=== PATIENT | male | born 1980 | race Caucasian/White ===

== ENCOUNTER 2021-01-09 02:12 | Emergency (ER) | payer OTHER, MEDICAID, SELFPAY ==
[2021-01-09 02:37] VITALS: BMI 27.8
[2021-01-09 02:43] VITALS: BP 135/82; PULSE 79; RESP 16; TEMP 37.1; O2SAT 97
--- NOTE | 2021-01-09 02:49 | ED_ITS ---
HPI - Dizziness General Chief Complaint: Abdominal Pain Stated [facility] Time Seen by Provider: 01/09/21 02:43 Source: patient and family Mode of arrival: Wheelchair Limitations: no limitations History of Present Illness HPI Narrative: The patient was in a significant accident 5 days ago. 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 He was topping a tree at his home. He has appropriate safety gear. He was restrained with safety gear on. The top came out oddly. The top briefly pinned him to the trunk of the tree. It took a while for him to come down, he was restrained he did not fall. He was seen at [facility] and [place]. It is noted has transverse process fractures at L3 and L4. No intervention was required. Two days ago hemoperitoneum was discovered. Laparoscopy was transition to open surgery when ischemic bowel injury was discovered. He underwent resection of the distal ileum dental about 5 cm from the ileocecal valve. He was discharged home yesterday. He is out of pain meds. He is not eating much. He is taking fluids. He has abdominal distention with increased abdominal pain. He has not had a bowel movement for 5 days. He was prescribed MiraLax and is taking 1/2 of a dose. He has no urinary complaints. He has no ENT complaints. He has no chest pain or dyspnea. He has no cough. He has no fever. Related Data Previous Rx's Medication Instructions Recorded hydrocodone-acetaminophen 1 tab PO Q4-6H PRN #15 tab 01/09/21 Allergies Allergy/AdvReac Type Severity Reaction Status Date / Time No Known Drug Allergies Allergy Verified 01/09/21 05:21 Review of Systems Constitutional Constitutional: Denies chills, Denies fever(s) and Denies frequent falls Eyes Eyes: Denies change in vision ENT Ears, Nose, Mouth, and Throat: Denies dizziness and Denies sore throat Cardiovascular Cardiovascular: Denies chest pain, Denies irregular heart rhythm, Denies lightheadedness and Denies dyspnea Respiratory Respiratory: Denies chest congestion and Denies dyspnea Gastrointestinal Gastrointestinal: Reports as per HPI Genitourinary Genitourinary: Denies dysuria and Denies urinary urgency Genitourinary: Denies dysuria and Denies urinary urgency Musculoskeletal Musculoskeletal: Reports back pain and Denies numbness Integumentary/Breasts Skin/Breast: Denies pruritus, Denies erythema and Denies rash Neurologic Neurologic: Denies behavioral changes, Denies confusion, Denies dizziness, Corey es frequent falls and Denies numbness Psychiatric Psychiatric: Denies behavioral changes and Denies confusion Patient History Medical History (Updated 01/09/21 @ 06:49 by Ponce Rocha MD) Lumbar vertebral fracture Surgical History (Updated 01/09/21 @ 06:49 by Ponce Rocha MD) Status post exploratory laparotomy Social History Smoking Status: Current some day smoker Smoking Status: Current some day smoker tobacco type: cigarettes alcohol intake frequency: 0-2 drinks per day Substance Use Type: marijuana Exam Initial Vital Signs Initial Vital Signs: Vital Signs Temperature 98.8 F 01/09/21 02:43 Pulse Rate 79 01/09/21 02:43 Respiratory Rate 16 01/09/21 02:43 Blood Pressure 135/82 01/09/21 02:43 Pulse Oximetry 97 01/09/21 02:43 Const General: well groomed and in distress Nutritional Appearance: average body habitus Limitations: mental status not altered and behavioral limitations HENMT Head: normocephalic and atraumatic Eyes General: appearance normal, both eyes and all related structures Eyelids: eyelids normal Conjunctivae: conjunctivae normal Sclera: sclerae normal Pupils: PERRL EOM: EOM intact bilaterally Chest Chest: normal palpation of entire chest wall Resp Auscultation: clear to auscultation bilaterally Cardio Rate: regular rate Rhythm: regular rhythm Heart Sounds: S1 normal, S2 normal, no click, no gallops, no murmurs and no rubs Pulses: normal peripheral pulses GI Inspection: non-distended Palpation: soft, No guarding, No pulsatile mass and tender Auscultation: normal bowel sounds Other: [place] at the site of his exploratory laparotomy. No erythema. No discharge. Abdominal distension with generalized tenderness. No peritoneal signs. Bowel sounds are normal. Back/Spine/Pelvis Back: No CVA tenderness Skin General: no rashes or lesions noted and No jaundice Neuro General: patient alert, patient oriented x3, gait normal and no focal motor deficits Speech: speech normal Psych Speech and Movement: agitated Course Orders Ordered: ED Orders 01/09/21 03:43 CT abdomen pelvis w con Stat 01/09/21 03:45 Complete Blood Count AUTO DIFF Stat Comprehensive Metabolic Panel Stat Lipase Stat 01/09/21 04:00 Urine Microscopic Stat Discontinued Medications Hydrocodone Bitart/Acetaminophen (Hydrocodone/Acet 5/325 Prepack) 1 bottle MISC SEEINSTR ONE Stop: 01/09/21 06:50 Diphenhydramine HCl (Diphenhydramine 50 Mg/Ml Vial) 25 mg IV NOW ONE Stop: 01/09/21 05:16 Last Admin: 01/09/21 06:12 Dose: 25 mg Documented by: JOSLYN Hydromorphone HCl (Hydromorphone 0.5 Mg Inj) 1 mg IV NOW ONE Stop: 01/09/21 03:42 Last Admin: 01/09/21 03:58 Dose: 1 mg Documented by: JOSLYN Sodium Chloride (Normal Saline 0.9%) 1,000 mls @ 1,000 mls/hr IV BOLUS ONE Stop: 01/09/21 04:40 Last Infusion: 01/09/21 05:00 Dose: 0 mls/hr Documented by: Admin: 01/09/21 03:58 Dose: 1,000 mls/hr Documented by: JOSLYN Metoclopramide HCl (Metoclopramide 10 Mg/2 Ml Inj) 10 mg IV NOW ONE Stop: 01/09/21 05:16 Last Admin: 01/09/21 06:12 Dose: 10 mg Documented by: JOSLYN Vital Signs Vital signs: Vital Signs - 8 hr 01/09/21 02:43 01/09/21 06:34 Temperature 98.8 F Pulse Rate 79 86 Respiratory Rate 16 12 Blood Pressure 135/82 144/85 H Pulse Oximetry 97 96 MDM - Dizziness Lab Data Result diagrams: 01/09/21 03:45 01/09/21 03:45 Labs: Lab Results 01/09/21 01/09/21 01/09/21 Range/Units 03:45 03:45 04:00 WBC 7.4 (4.5-11.0) X10^3/uL RBC 4.33 L (4.5-5.9) X10^6/uL Hgb 12.7 L (13.5-17.5) g/dL Hct 37.2 L (41-53) % MCV 86.0 (80-100) fL MCH 29.5 (26-34) PG MCHC 34.3 (30-36) % RDW 13.4 (11.6-14.8) % Plt Count 376 (150-400) X10^3/uL Neut % (Auto) 79.0 H (50-75) % Lymph % (Auto) 10.5 L (25-40) % Cotton % (Auto) 7.7 (3-14) % Eos % (Auto) 2.5 (2-4) % Baso % (Auto) 0.3 (0-2) % Neut # (Auto) 5800 (5397-6753) /uL Lymph # (Auto) 800 L (1940-2893) /uL Cotton # (Auto) 600 (0-900) /uL Eos # (Auto) 200 (0-450) /uL Baso # (Auto) 0 (0-100) /uL Sodium 136 L (137-145) mmol/L Potassium 3.7 (3.4-5.1) mmol/L Chloride 100 (98-107) mmol/L Carbon Dioxide 28 (22-32) mmol/L BUN 12 (9-20) mg/dL Creatinine 0.70 (0.66-1.25) mg/dL Estimated GFR > 60.0 (>60) mL/min BUN/Creatinine Ratio 17.1 (6-22) Glucose 110 H (70-100) mg/dL Calcium 9.3 (8.4-10.2) mg/dL Total Bilirubin 0.5 (0.2-1.3) mg/dL AST 38 (17-59) IU/L ALT 25 (<50) IU/L Alkaline Phosphatase 64 (38-126) U/L Total Protein 6.7 (6.3-8.2) g/dL Albumin 3.7 (3.5-5.0) g/dL Globulin 3.0 (1.7-4.1) g/dL Albumin/Globulin Ratio 1.2 (1.0-2.8) Lipase 25 (23-300) U/L Urine RBC 0-1/hpf (0-5/HPF) Urine WBC None seen (0-5/HPF) Amorphous Sediment 2+ Urine Bacteria None seen (None) Ur Culture Indicated? Cult not indicated Urine Dip Bedside Urine Glucose Negative Bedside Urine Bilirubin - Negative Bedside Urine Ketone - Negative Urine Specific [place] 1.015 Bedside Urine Occult Blood + Bedside Urine pH 8.0 Bedside Urine Protein - Negative Bedside Urine Urobilinogen - Negative Bedside Urine Nitrite - Negative Imaging Data CT scan - abdomen/pelvis: Radiologist's Impression: Abdominal CT reveals the L2 in 3 fractures. Postoperative changes for abdominal surgery noted. He has an ileus. Discharge Plan Departure Patient Disposition: Home Clinical Impression: Adynamic ileus, Status post small bowel resection Closed lumbar vertebral fracture Qualifiers: Encounter type: sequela Lumbar vertebra fracture level: L3 Instructions: DI for Ileus Activity Restrictions/Additional Instructions: Will give you a limited number of [place] for pain. You can also use Tylenol or Advil. For your bowel discomfort, you must drink plenty of fluids. You should walk-in stress for both a back injury as well as the surgery. Moving around will help stimulate bowel movements. Use the MiraLax prescribed from [facility]. Take a dose every 6 hours if necessary. If symptoms persist, follow-up with your surgeon. Return to an ER if you develop fever or worsening pain. Prescriptions: New hydrocodone-acetaminophen 5-325 mg tablet 1 tab PO Q4-6H PRN (Reason: pain) Qty: 15 RF: 0
--- NOTE | 2021-01-09 03:43 | DI.CT.S_ITS ---
PROCEDURE: CT ABDOMEN PELVIS W CON INDICATIONS: Abdominal pain and distension. Recent ex lap due to trauma. TECHNIQUE: After the administration of intravenous contrast, 5 mm thick sections acquired from the diaphragm to the symphysis. 5 mm coronal and sagittal reformats were acquired. For radiation dose reduction, the following was used: automated exposure control, adjustment of mA and/or kV according to patient size. COMPARISON: None. FINDINGS: Image quality: Excellent. ABDOMEN: Lung bases: Lung bases are clear. Heart size is normal. Solid organs: Liver is normal in size and enhancement. Subcentimeter hypodensities can be seen involving the liver. Gallbladder demonstrates layering high-density material within its lumen. Biliary system is non dilated. Pancreas enhances normally. Spleen is normal in size and enhancement. Incidental note is made of an accessory splenule along the hilum of the primary spleen. No adrenal nodules. Kidneys demonstrate normal size and enhancement, without hydronephrosis. Peritoneum and bowel: Generalized enlarged fluid-filled small bowel loops are seen, which measure up to 4.3 cm. Anastomotic staple lines can be seen involving the cecum. There is a small amount of ascites seen. A trace amount of free air is seen, which is considered to be within postoperative limits. Nodes and vessels: No retroperitoneal or mesenteric adenopathy by size criteria. Aorta and inferior vena cava are normal in size. Miscellaneous: Postoperative changes are seen of the anterior abdominal wall. PELVIS: Genitourinary: Bladder wall thickness is normal. Miscellaneous: No inguinal hernias or adenopathy. Bones: No suspicious bony lesions. No vertebral body compression fractures. Nondisplaced left L2 and L3 transverse process fractures are seen. IMPRESSION: Recent postoperative changes are seen, with anterior abdominal wall cyndie and a small amount of intraperitoneal gas. An anastomotic staple line can be seen involving the cecum. Dilated loops of small bowel are seen throughout, which are attributed to postoperative ileus. There is a small amount of ascites seen. Layering high-density material can be seen within the gallbladder lumen. Although this may be related to stones, please correlate with history for a recent prior CT examination, with vicarious excretion of contrast. Subcentimeter liver hypodensities are seen, which most likely relate to cysts or hemangiomas. Incidental note is made of: Accessory splenule Displaced left L2 and L3 transverse process fractures. Note: No significant discrepancy from the preliminary report. Dictated by: Angel Vitale M.D. on 01/09/2021 at 8:09 Approved by: Angel Vitale M.D. on 01/09/2021 at 8:15
[2021-01-09] MEDS: HYDROMORPHONE 0.5 MG INJ 1 MG IV (03:58)
[2021-01-09] MEDS: SODIUM CHLORIDE 0.9% 1,000 ML 1000 ML IV (03:58)
[2021-01-09 04:05] LABS: Add Manual Diff / Slide Review NO; Basophils Absolute Auto 0 /uL (0-100); Basophils Percent Auto 0.3 % (0-2); Eosinophils Absolute Auto 200 /uL (0-450); Eosinophils Percent Auto 2.5 % (2-4); Hematocrit 37.2 % (41-53); Hemoglobin 12.7 g/dL (13.5-17.5); Lymphocytes Absolute Auto 800 /uL (1100-4500); Lymphocytes Percent Auto 10.5 % (25-40); Mean Corpuscular HGB Conc 34.3 % (30-36); Mean Corpuscular Hemoglobin 29.5 PG (26-34); Monocytes Absolute Auto 600 /uL (0-900); Monocytes Percent Auto 7.7 % (3-14); Neutrophils Absolute Auto 5800 /uL (1500-7000); Platelet Count 376 X10^3/uL (150-400); Red Blood Cell Count 4.33 X10^6/uL (4.5-5.9); Red Cell Distribution Width 13.4 % (11.6-14.8); White Blood Cell Count 7.4 X10^3/uL (4.5-11.0)
[2021-01-09 04:12] LABS: Bacteria Urine None Seen; WBC Urine None Seen (0-5/HPF)
[2021-01-09 04:12] LABS: Alanine Aminotransferase 25 IU/L (<50); Albumin 3.7 g/dL (3.5-5.0); Albumin Globulin Ratio 1.2 (1.0-2.8); Alkaline Phosphatase 64 U/L (38-126); Aspartate Aminotransferase 38 IU/L (17-59); BUN Creatinine Ratio 17.1 (6-22); Bilirubin Total 0.5 mg/dL (0.2-1.3); Blood Urea Nitrogen 12 mg/dL (9-20); Calcium 9.3 mg/dL (8.4-10.2); Carbon Dioxide 28 mmol/L (22-32); Chloride 100 mmol/L (98-107); Estimated Glomerular Filt Rate > 60.0 mL/min (>60); Glucose 110 mg/dL (70-100); HEMOLYSIS 18 (0-50); Lipase 25 U/L (23-300); Potassium 3.7 mmol/L (3.4-5.1); Sodium 136 mmol/L (137-145); Total Protein 6.7 g/dL (6.3-8.2)
[2021-01-09 04:34] LABS: Amorphous Sediment Urine 2+; Culture Indicated Urine Cult Not Indicated; RBC Urine 0-1/HPF (0-5/HPF)
[2021-01-09] MEDS: METOCLOPRAMIDE 10 MG/2 ML INJ IV (06:12)
[2021-01-09] MEDS: diphenhydrAMINE 50 MG/ML VIAL 25 MG IV (06:12)
[2021-01-09 06:34] VITALS: BP 144/85; PULSE 86; RESP 12; O2SAT 96
[2021-01-09] MEDS: HYDROCODONE/ACET 5/325 PREPACK 1 BOTTLE MISC (07:47)
--- NOTE | 2021-01-09 07:58 | PC.NURSE ---
entered room to discharge patient. Patient sitting calmly on stretcher reporting pain. IV removed. Patient stating he does not know how he can cope with the pain. He requested more IV pain medication. IV already removed. Patient informed they will be sent home with a pre pack of [place] and a script. Patient spouse arrived into the room. Patient began weeping and wimpering to spouse. spouse then asked in an aggressive manner using swear words if we were actually going to do anything. She stated she can't take care of him like this at home. Patient assisted to the restroom by spouse. Provider notified and aware.
[2021-01-09 08:42] VITALS: BP 144/85; PULSE 86; RESP 18; O2SAT 98
== END 2021-01-09 08:49 | disposition home or self-care (01) ==
PROVIDERS: Emergency Provider Emergency Medicine
DX: K56.0 Paralytic ileus (principal); S32.009A Unspecified fracture of unspecified lumbar vertebra, initial encounter for closed fracture; W19.XXXA Unspecified fall, initial encounter; Z90.49 Acquired absence of other specified parts of digestive tract
CPT/HCPCS: 36415; 74177; 80053; 81003; 81015; 83690; 85025; 96361; 96374; 96375; 99284; J1170; J1200; J2765; Q9967